=== PATIENT | male | born 1935 | race Caucasian/White ===

== ENCOUNTER → 2018-10-26 | Outpatient (CLI) | payer OTHER ==
[~2018-10-26] MED LIST: ASPI81CH PO; ASPI81EC PO; ATEN25 PO; BIOTIN2500 MCG PO; CARV6.25 PO; DHEA PO; FISH1000 PO; FURO20 PO; GABA300T24 PO; LISI20 PO; LISI5 PO; OMEP40CA12 PO; POTCHL10ER PO; Percocet 5-3251 EACH PO; Prednisone20 MG PO; SIMV40 PO; UBID10; WARF2; WARF2 PO; WARF4 PO; WARF5 PO
== END | disposition home or self-care (01) ==
LOC: LAB SHORT 10:35 → PLD 10:35
DX: L30.8 Other specified dermatitis (principal)
CPT/HCPCS: 88305

== ENCOUNTER 2020-02-17 18:50 | Inpatient (IN) | payer OTHER, MEDICARE ==
[~2020-02-17] VITALS: Ht 170.2 cm; Wt 74.8 kg
[~2020-02-17 18:50] MED LIST changes: +CENTRUM SILVER1 EAC2 PO; +JANTOVEN2 MG PO; +Jantoven1 MG PO; +Jantoven3 MG; +OMEP20ER PO; +Simvastatin40 MG PO
[2020-02-17 19:18] LABS: BASOPHILS ABSOLUTE AUTO 0.05 K/mm3 (0.00-0.23); BASOPHILS PERCENT AUTO 1 % (0-2); EOSINOPHILS ABSOLUTE AUTO 0.19 K/mm3 (0.00-0.68); EOSINOPHILS PERCENT AUTO 3 % (0-6); Hematocrit 50.1 % (37.0-53.0); Hemoglobin 16.5 g/dL (13.5-17.5); IMMATURE GRAN ABSOLUTE AUTO 0.02 K/mm3 (0.00-0.10); IMMATURE GRAN PERCENT AUTO 0 % (0-1); LYMPHOCYTES ABSOLUTE AUTO 2.18 K/mm3 (0.84-5.20); LYMPHOCYTES PERCENT AUTO 30 % (21-46); MONOCYTES ABSOLUTE AUTO 0.71 K/mm3 (0.16-1.47); MONOCYTES PERCENT AUTO 10 % (4-13); Mean Corpuscular HGB 32.9 pg (26.0-34.0); Mean Corpuscular HGB Conc 32.9 g/dL (31.5-36.5); Mean Corpuscular Volume 100 fL (80-100); Mean Platelet Volume 10.2 fL (9.1-12.4); NEUTROPHILS ABSOLUTE AUTO 4.13 K/mm3 (1.96-9.15); NEUTROPHILS PERCENT AUTO 57 % (41-73); Platelet Count 112 K/mm3 (150-400); RDW Coefficient Variation 12.7 % (11.7-14.2); RDW Standard Deviation 47.1 fL (35.1-46.3); Red Blood Cell Count 5.02 M/mm3 (4.30-5.90); White Blood Cell Count 7.28 K/mm3 (4.00-11.30)
[2020-02-17 19:31] LABS: Albumin, Blood 3.7 g/dL (3.4-5.0); Albumin/Globulin Ratio 0.9 (0.8-1.8); Bilirubin, Total 1.1 mg/dL (0.1-1.0); Bun/Creatinine Ratio 16.7 (12.0-20.0); Calcium, Blood 9.3 mg/dL (8.5-10.1); Creatinine, Blood 1.26 mg/dL (0.60-1.20); Globulin, Blood 4.2 g/dL (2.2-4.0); International Normalized Ratio 2.57; Potassium, Blood 4.3 mmol/L (3.5-5.5); Prothrombin Time Results 26.1 Sec (9.7-11.5); Total Protein, Blood 7.9 g/dL (6.4-8.2)
[2020-02-18 01:01] LABS: BASOPHILS ABSOLUTE AUTO 0.05 K/mm3 (0.00-0.23); BASOPHILS PERCENT AUTO 1 % (0-2); EOSINOPHILS ABSOLUTE AUTO 0.12 K/mm3 (0.00-0.68); EOSINOPHILS PERCENT AUTO 2 % (0-6); Hematocrit 48.8 % (37.0-53.0); Hemoglobin 16.2 g/dL (13.5-17.5); IMMATURE GRAN ABSOLUTE AUTO 0.02 K/mm3 (0.00-0.10); IMMATURE GRAN PERCENT AUTO 0 % (0-1); LYMPHOCYTES PERCENT AUTO 24 % (21-46); MONOCYTES ABSOLUTE AUTO 0.73 K/mm3 (0.16-1.47); MONOCYTES PERCENT AUTO 10 % (4-13); Mean Corpuscular HGB 32.9 pg (26.0-34.0); Mean Corpuscular HGB Conc 33.2 g/dL (31.5-36.5); Mean Corpuscular Volume 99 fL (80-100); Mean Platelet Volume 9.8 fL (9.1-12.4); NEUTROPHILS ABSOLUTE AUTO 4.66 K/mm3 (1.96-9.15); NEUTROPHILS PERCENT AUTO 63 % (41-73); Platelet Count 106 K/mm3 (150-400); RDW Coefficient Variation 12.5 % (11.7-14.2); RDW Standard Deviation 46.6 fL (35.1-46.3); Red Blood Cell Count 4.92 M/mm3 (4.30-5.90); White Blood Cell Count 7.38 K/mm3 (4.00-11.30)
[2020-02-18 01:14] LABS: Anion Gap 5 mmol/L (6-16); Blood Urea Nitrogen 21 mg/dL (8-24); Bun/Creatinine Ratio 17.9 (12.0-20.0); CO2, Blood 27 mmol/L (21-32); Calcium, Blood 8.8 mg/dL (8.5-10.1); Chloride, Blood 108 mmol/L (98-108); Creatinine, Blood 1.17 mg/dL (0.60-1.20); Glomerular Filtration Rate >60 (60-); Glucose, Blood 97 mg/dL (70-99); Potassium, Blood 3.8 mmol/L (3.5-5.5); Sodium, Blood 140 mmol/L (136-145)
--- NOTE | 2020-02-18 04:45 | NUR ---
SLOOP CAPTAIN SUMMARY LETHARGIC AND NONVERBAL BUT ABLE TO OPEN EYES TO VERBAL STIMULI. R. FACIAL DROOP NOTED, GROSS MOVEMENT TO RUE/RLE. Q2 REPOSITIONING AND ASPIRATION PRECAUTIONS IN PLACE. CONT. BIOX IN PLACE WITH SATS AROUND 90-92. ORAL SUCTIONING AT BEDSIDE. NO ACUTE DISTRESS NOTED AT THIS TIME. BED IN LOWEST POSITION WITH CALL LIGHT IN REACH. WILL CONTINUE TO MONITOR AND REPORT TO ONCOMING RN.
--- NOTE | 2020-02-18 17:29 | NUR ---
PT IS AOX1 THIS AM PT JUST NEEDED REPOSITIONED AND TURNED O2 94% RA. PT DID NOT TALK AND THIS HAS NOT IMPROVED. LS WERE DIMINISHED THROUGHOUT. THIS ARTIFICIAL GLASS EYE MAKER CONTACTED [facility] IN PALLATIVE CARE A POSSIBLE DISCUSSION WITH ABOUT PT CARE NEEDED TO BE LOOKED INTO. THIS ARTIFICIAL GLASS EYE MAKER WENT IN WITH PALLIATIVE CARE AND PT SEEMS TO BE RATTLING WHEN HE IS BREATHING NOW AND HE HAS HAD A DEFINATE COOLING OF EXTREMETIES. DISCUSSED THIS WITH PALLIATIVE CARE NURSE AND SHE WAS TO CONTACT DR HERNÁNDEZ AND THEN PT'S TO BE CONTACTED. AFTER THIS DISCUSSION THIS ARTIFICIAL GLASS EYE MAKER AND AID WERE CHANGING PT AND IT SEEMED PT HAS BEEN STARTING TO DIP WITH HIS 02 DOWN INTO THE 80s. O2 1.5l WAS ADDED FOR COMFORT. WILL CONTINUE TO MONITOR PT.
--- NOTE | 2020-02-18 19:15 | NUR ---
Initial palliative care consult: Went with nursing to assess pt this afternoon. He is restless, has some mottling areas noted to his knees bilat and right ankle. He appears to possibly be having some visual hallucinations as he reaches for things in the air above his head. He has some moist respiratory sounds that are audible without a stethoscope. He does open his eyes and turn his head when spoken to but he stares blankly and is only able to mumble words that cannot be understood. Nursing spoke with pt's recently and Taylor is wanting to have information on her and his current health condition. Spoke with Dr. Kitchen at 1700 and relayed nursing's concerns and change in pt status throughout the day. Dr. Kitchen will plan to call pt's and discuss current treatment plan and broach the subject of possibly transitioning to comfort care. Received a call from Dr. Kitchen at 1804. He has spoken with Taylor and she has chosen to transition to comfort care. PC RN will place comfort care order set per Dr. Kitchen's request. Dr. Kitchen would like PC RN to follow up with Taylor this evening. Dr. Kitchen also stated he will leave it up to Taylor if she would like to continue the heparin gtt until tomorrow when she can visit or if she would like to turn it off. Comfort care orders placed. Called Taylor at 1900 this evening. She is grateful for the call from Dr. Kitchen and nursing. Discussed the pros and cons for continuing the heparin gtt until tomorrow. Taylor requests to have the heparin gtt turned off tonight. Orders placed to d/c heparin gtt. She states that Denton was adament that he would not want aggressive treatments. 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 She has not called their children yet, offered to have PC RN assist with talking with children if she would like that assistance. She declined. 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 Will contact the [facility] for an interogation of his pacer/defib. Charge nurse, aMriella, on medical floor notified. Will also follow up with [facility] for assistance with pacemaker. Denton does not appear imminent at this time. Taylor requests to be contacted if his condition changes. Will plan to have PC RN follow up with Taylor tomorrow.
--- NOTE | 2020-02-18 20:00 | NUR ---
COMFORT CARE D/C'D HEPARIN PER PHYSICIANS ORDER. PT APPEARS RESTLESS IN BED, REPOSITIONED AND GIVEN IV ATIVAN FOR ANXIETY. SL ATROPINE GIVEN FOR SECRETIONS WELL ORAL CARE AND SUCTIONING. BED IN LOWEST POSITION WITH CALL LIGHT IN REACH. WILL CONTINUE TO MONITOR.
--- NOTE | 2020-02-18 22:00 | NUR ---
COMFORT CARE PT CONTINUES TO BE RESTLESS. ATTENDS CHANGED WELL REPOSITIONING. ORAL PAIN MEDS GIVEN WELL SL ATROPINE FOR SECRETIONS. BED IN LOWEST POSITION WITH CALL LIGHT IN REACH. WILL CONTINUE TO MONITOR
--- NOTE | 2020-02-19 | NUR ---
COMFORT CARE REPOSITIONING AND ORAL CARE COMPLETED. PT WAS ABLE TO REST FOR A SMALL AMOUNT OF TIME. BED IN LOWEST POSITION WITH CALL LIGHT IN REACH. WILL CONTINUE TO MONITOR.
--- NOTE | 2020-02-19 02:00 | NUR ---
COMFORT CARE PT APPEARED RESTLESS, PRN ANIXETY MEDICATION GIVEN PER EMAR. ORAL CARE AND REPOSITIONING COMPLETED. BED IN LOWEST POSITION WITH CALL LIGHT IN REACH. WILL CONTINUE TO MONITOR
--- NOTE | 2020-02-19 04:00 | NUR ---
COMFORT CARE SL ATROPINE DROPS GIVEN FOR SECRETIONS. ORAL PAIN MEDS GIVEN WELL. REPOSITIONED WITH HOB ELEVATED. BED IN LOWEST POSITION WITH CALL LIGHT IN REACH. WILL CONTINUE TO MONITOR.
--- NOTE | 2020-02-19 04:36 | NUR ---
COLD STORAGE SUPERINTENDENT SUMMARY PT HAS BEEN RESTLESS AND ANXIOUS T/O THE NIGHT. ABLE TO REST MORE COMFORTABLY AFTER BED BATH WAS GIVEN. Q2 REPOSITIONING AND ORAL CARE PRN. HEPARIN WAS D/C'D FOLLOWING PROIDERS ORDER. CURRENTLY ON 2L O2 FOR COMFORT. BED IN LOWEST POSITION WITH CALL LIGHT IN REACH. WILL CONTINUE TO MONITOR AND REPORT TO ONCOMING RN.
--- NOTE | 2020-02-19 06:00 | NUR ---
COMFORT CARE PT HAVING INCREASED SECRETIONS, SCOPOLAMINE PATCH RECIEVED FROM PHARMACY. WHILE GOING INTO ROOM TO PLACE PATCH, I FOUND PT TO HAVE COFFEE GROUND EMESIS ON HIMSELF AND THE BED. STAFF ASSISTED IN CLEANING PT UP. IV ATIVAN GIVEN FOR INCREASED ANXIETY. ORAL CARE AND SUCTIONING COMPLETED WELL REPOSITIONING. BED IN LOWEST POSITION WITH CALL LIGHT IN REACH. WILL CONTINUE TO MONITOR
--- NOTE | 2020-02-19 14:27 | NUR ---
PAL CARE COMFORT CARE VISIT - PT SUPINE WITH HOB ELEVATED, O2 CANULA IN HIS MOUTH. RESP RATE 32/MIN, EVEN AND LABORED MOUTH BREATHING. REQUESTED THAT WE REMOVE PT'S DENTAL APPLIANCE AND O2, WHICH WE DID. REPORT TO RN ON VISIT AND RECOMMENDED THAT PT BE GIVEN ROXANOL FOR PAIN NOTED WITH FROWNING AND GRIMACING AND AIR HUNGER. RN PRESENT WITHIN BRIEF MINUTES TO ADMINISTER ROXANOL. IF ROXANOL NOT FULLY EFFECTIVE FOR RELIEF OF PAIN, AIR HUNGER AND RESTLESSNESS/AGITATION, I WOULD ALSO RECOMMEND DOSE OF ATIVAN PER eMAR. PT HAS NOT RECEIVED EITHER OF THESE MEDICATIONS SINCE EARLY AM HOURS. I BELIEVE MORE FREQUENT ROUTINE ADMINISTRATION WOULD BE MORE EFFECTIVE NOW WITH PT MORE ACTIVE IN THE DYING PROCESS AT THIS TIME. RN AND RIM TURNING FINISHER PROVIDING PERSONAL AND ORAL CARE. PT GROANING WITH CARE BEING PROVIDED. NOT ABLE TO FOLLOW COMMANDS. RN REPORTED COFFEE GROUND EMESIS NOTED EARLIER TODAY TO .
--- NOTE | 2020-02-19 17:57 | NUR ---
PT WAS RESTING NICELY FOR THE FIRST PART OF THE SHIFT. PT THEN STARTED TO LOOK UNCOMFORTABLE AND HIS BREATHING INCREASED. TREATED PER EMAR AND THIS SEEMS TO HAVE PT COMFORTABLE AT THIS TIME. PT'S CAME IN TO SEE HIM AND WAS ABLE TO SPEND SOME TIME WITH PT. WILL CONTINUE TO MONITOR.
--- NOTE | 2020-02-19 20:45 | NUR ---
COMFORT CARE PT CURRENTLY APPEARS TO BE RESTING COMFORTABLY. CONTINUES TO HAVE INTERMITTENT PERIODS OF PAUSED BREATHING LASTING 5-10 SECONDS. DOES NOT APPEAR TO HAVE INCREASED SECRETIONS AT THIS TIME. BED IN LOWEST POSITION WITH CALL LIGHT IN REACH. WILL CONTINUE TO MONITOR
--- NOTE | 2020-02-20 01:27 | NUR ---
COMFORT CARE PT GIVEN ORAL PAIN MEDICATIONS, REPOSITIONED FOR COMOFORT. CONTINUES TO HAVE INT. PAUSED BREATHING. ORAL CARE COMPLETED. BED IN LOWEST POSITION WITH CALL LIGHT IN REACH. WILL CONTINUE TO MONITOR
--- NOTE | 2020-02-20 01:28 | NUR ---
COMFORT CARE PT HAVING INCREASED ANXIETY DURING REPOSITIONING. GIVEN IV ATIVAN PER EMAR. ORAL CARE COMPLETED. BED IN LOWEST POSITION WITH CALL LIGHT IN REACH.
--- NOTE | 2020-02-20 04:00 | NUR ---
COMFORT CARE REPOSITIONING AND ORAL CARE/SUCTIONING COMPLETED. SL ROXANOL GIVEN FOR DISCOMFORT. BED IN LOWEST POSITION WITH CALL LIGHT IN REACH
--- NOTE | 2020-02-20 04:08 | NUR ---
BARMAN SUMMARY PT REMAINS DIFFICULT TO AROUSE WITH INTERMITTENT EPISODES OF PAUSED BREATHING LASTING 5-10 SECONDS. INCREASED PAIN/ANIXETY WITH REPOSITIONING. MEDICATED PER EMAR. ORAL CARE Q2 AND PRN. BED IN LOWEST POSITION WITH CALL LIGHT IN REACH. WILL CONTINUE TO MONITOR AND REPORT TO ONCOMING RN
--- NOTE | 2020-02-20 06:00 | NUR ---
COMFORT CARE REPOSITIONING AND ORAL CARE/SUCTIONING COMPLETED. PRN ATIVAN GIVEN FOR RESTLESSNESS AND ANXIETY. BED IN LOWEST POSITION WITH CALL LIGHT IN REACH. WILL CONTINUE TO MONITOR.
--- NOTE | 2020-02-20 10:03 | NUR ---
Pt respirations deep no grimace some labored breaths. Nursing medicated pt for comfort of ventilation and breathing. Spoke with on the phosne for consent on pacemaker evaluation and possible discontined care. She states contaced and that device should not cause pain or harm so feels it is not necessary. [facility] notified and order cancelled. Pt overwhelmed and fatigued. She has been up since four am with calls from family and children. Pt sons are coming in to town to visit him todayl. Theraputic conversation with to express her struggles and grief. Will follow up with her when she comes in to visit and will update chaplian. chose [facility] in [place]. [phone]. charge nurse and nursing supervisor landscape notified.
--- NOTE | 2020-02-20 17:32 | NUR ---
PT UNRESPONSIVE TO DAY TURNING EVERY TWO HOURS. PT IS KEEP COMFORTABLE PER EMAR. PT LOOKS COMFORTABLE AT THIS TIME, MULTIPLE FAMILY HAS BEEN IN TO SEE PT. WILL CONTINUE TO MONITOR.
--- NOTE | 2020-02-21 04:58 | NUR ---
CITY COUNCIL MEMBER SUMMARY NO ACUTE CHANGES THIS SHIFT. PT REMAINS ON COMFORT CARE AND IS MAINLY NON RESPONSIVE. NO PERIODS OF APNEA NOTED TONIGHT. PT HAD SOME GURGLING SECRETIONS AT START OF SHIFT BUT DAY SHIFT RN GAVE PT ATROPINE DROPS WHICH HELPED RESOLVE THAT ISSUE. NO GRIMMACING/MOANING/DISCOMFORT NOTED. PT HAS RESTED WELL THROUGH THE NIGHT. WILL CONTINUE TO MONITOR.
--- NOTE | 2020-02-21 11:25 | NUR ---
HAS BEEN SLEEPING ALL MORNING. APPEARS COMFORTABLE. NO; GRIMACING, MOANING OR FURROWED SAMIR. WCTM.
--- NOTE | 2020-02-21 11:59 | NUR ---
pt progressing repirations and secretions managed comfort quilt placed.
--- NOTE | 2020-02-21 18:00 | NUR ---
SLEEPING ALL DAY. GIVEN MEDS FOR EXCESS SECRETIONS. RESPIRATIONS DECRESAED. PER Lilliana MARQUEZ IS WHO SHE WANTS TO USE. WCTM
--- NOTE | 2020-02-21 21:52 | NUR ---
AT 2130, PATIENT . SPOUSE INFORMED, CHARGE NOTIFIED AND HOSPITALIST INFORMED. [facility] IS FAMILY CHOICE. BLANKET BELONGING TO PATIENT TO BE SENT TO HOME WITH PATIENT.
== END 2020-02-21 21:31 | DRG 65 ==
LOC: ER 18:50 → MEDS 18:51
PROVIDERS: Nurse Practitioner Acute Care; Student in an Organized Health Care Education/Training Program; ADMIT Internal Medicine
DX: I63.9 Cerebral infarction, unspecified (principal); G81.91 Hemiplegia, unspecified affecting right dominant side; I50.22 Chronic systolic (congestive) heart failure; I42.0 Dilated cardiomyopathy; Z20.828 Contact with and (suspected) exposure to other viral communicable diseases; Z66 Do not resuscitate; R47.01 Aphasia; R13.10 Dysphagia, unspecified; I11.0 Hypertensive heart disease with heart failure; I48.91 Unspecified atrial fibrillation; Z51.5 Encounter for palliative care; Z95.2 Presence of prosthetic heart valve; E78.5 Hyperlipidemia, unspecified; Z95.1 Presence of aortocoronary bypass graft; Z95.810 Presence of automatic (implantable) cardiac defibrillator; Z86.73 Personal history of transient ischemic attack (TIA), and cerebral infarction without residual deficits; Z79.01 Long term (current) use of anticoagulants; I25.10 Atherosclerotic heart disease of native coronary artery without angina pectoris; K21.9 Gastro-esophageal reflux disease without esophagitis; Z87.891 Personal history of nicotine dependence; R62.7 Adult failure to thrive; Z91.81 History of falling; K11.8 Other diseases of salivary glands
CPT/HCPCS: 36415; 70450; 70496; 70498; 71045; 80048; 80053; 82947; 85025; 85610; 85730; 92610; 93005; 93010; 94760; 94762; 97110; 97161; 97530; 99285-25; C9113; J1644; J1940; J2060; J7030; Q9967